=== PATIENT | male | born 1990 | race Caucasian/White ===

== ENCOUNTER 2017-12-13 21:30 | Emergency (ER) | payer BC ==
[2017-12-13 22:39] LABS: Absolute Lymphocytes (CBC) 1.1 K/uL (0.7-4.9); Absolute Monocytes 1.2 K/uL (0.1-1.3); Absolute Neutrophil 12.2 K/uL (1.8-8.0); Basophils % 0.2 % (0-1.3); Eosinophils % 0.1 % (0-4.4); Hematocrit 46.1 % (39.6-49.0); Lymphocytes % 7.6 % (15.3-44.8); MCH 30.5 pg (27.0-35.0); MCV 88.2 fL (80-100); MPV 9.1 fL (7.6-11.3); Monocytes % 8.1 % (3.3-12.3); RBC Red Blood Cell Count 5.23 M/uL (4.33-5.43)
[2017-12-13 22:44] LABS: Protime INR 1.13
[2017-12-13 23:07] LABS: ALT/SGPT 34 U/L (12-78); AST/SGOT 32 U/L (15-37); Albumin 5.5 g/dL (3.4-5.0); Alkaline Phosphatase 93 U/L (45-117); BUN Blood Urea Nitrogen 18 mg/dL (7-18); Bicarbonate 29 mmol/L (21-32); Bilirubin Direct 0.1 mg/dL (0-0.2); Bilirubin Total 0.8 mg/dL (0.2-1.0); Glucose Level 91 mg/dL (74-106); Potassium 3.8 mmol/L (3.5-5.1); Protein, Total 9.6 g/dL (6.4-8.2); Sodium Level 140 mmol/L (136-145)
[2017-12-13 23:44] LABS: Urine Blood TRACE (NEG); Urine Glucose NEGATIVE (NEG); Urine Protein 2+ (NEG); Urine Specific Gravity >1.030 (1.005-1.030); Urine pH 5.5 (5.0-7.0)
[2017-12-14 00:01] LABS: Barbiturates NEGATIVE (NEGATIVE); Benzodiazepines NEGATIVE (NEGATIVE); Cocaine NEGATIVE (NEGATIVE); METHAMPHETAM NEGATIVE (NEGATIVE); Methadone NEGATIVE (NEGATIVE); Opiates NEGATIVE (NEGATIVE); Phencyclidine NEGATIVE (NEGATIVE); THC Cannibis NEGATIVE (NEGATIVE)
--- NOTE | 2017-12-14 06:44 | EDPHYS ---
Physician Documentation [facility] Name: Jonnie Weldon Age: 27 yrs Sex: Male : 1990 Arrival Date: 12/13/2017 Time: 21:40 Bed 7 Private MD: ED Physician Karthik Tompkins HPI: 12/14 03:11 This 27 yrs old Male presents to ER via Law Enforcement with complaints of tw4 Suicidal Ideation. 03:11 The patient presents to the emergency department with depression, over a relationship, tw4 suicide ideation, and the patient has a plan, unknown. Onset: The symptoms/episode began/occurred just prior to arrival, today. Past psychiatric history: Prior diagnosis: depression, Psychiatric medications include:. Associated signs and symptoms: The patient has no apparent associated signs or symptoms. Historical: - Allergies: 12/13 22:12 No Known Allergies; aa1 - Home Meds: 23:12 Trintellix 20 mg oral tab 1 tab once daily [Active]; aa1 - PMHx: 22:12 Depression; aa1 - PSHx: 22:12 None; aa1 - Immunization history:: Adult Immunizations up to date. - Social history:: Smoking status: Patient/guardian denies using tobacco, Patient uses alcohol, occasionally. Patient/guardian denies using street drugs, IV drugs. - Ebola Screening: : No symptoms or risks identified at this time. ROS: 12/14 03:11 Constitutional: Negative for fever, chills, and weight loss, Eyes: Negative for injury, tw4 pain, redness, and discharge, Cardiovascular: Negative for chest pain, palpitations, and edema, Respiratory: Negative for shortness of breath, cough, wheezing, and pleuritic chest pain, Abdomen/GI: Negative for abdominal pain, nausea, vomiting, diarrhea, and constipation, Back: Negative for injury and pain, MS/Extremity: Negative for injury and deformity, Neuro: Negative for headache, weakness, numbness, tingling, and seizure. Psych: Positive for depression, suicide gesture, suicidal ideation. Exam: 03:11 Constitutional: This is a well developed, well nourished patient who is awake, alert, tw4 and in no acute distress. Head/Face: Normocephalic, atraumatic. Chest/axilla: Normal chest wall appearance and motion. Nontender with no deformity. No lesions are appreciated. Cardiovascular: Regular rate and rhythm with a normal S1 and S2. No gallops, murmurs, or rubs. Normal PMI, no JVD. No pulse deficits. Respiratory: Lungs have equal breath sounds bilaterally, clear to auscultation and percussion. No rales, rhonchi or wheezes noted. No increased work of breathing, no retractions or nasal flaring. Abdomen/GI: Soft, non-tender, with normal bowel sounds. No distension or tympany. No guarding or rebound. No evidence of tenderness throughout. Back: No spinal tenderness. No costovertebral tenderness. Full range of motion. MS/ Extremity: Pulses equal, no cyanosis. Neurovascular intact. Full, normal range of motion. Neuro: Awake and alert, GCS 15, oriented to person, place, time, and situation. Cranial nerves II-XII grossly intact. Motor strength 5/5 in all extremities. Sensory grossly intact. Cerebellar exam normal. Normal gait. 03:11 Psych: Behavior/mood is suicidal, depressed, Affect is flat, Oriented to person, place, time, Patient has no thoughts/intents to harm self or others. Vital Signs: 12/13 21:42 BP 145 / 91; Pulse 81; Resp 16; Temp 98.6; Pulse Ox 96% on R/A; Weight 63.5 kg; Height aa1 5 ft. 11 in. (180.34 cm); Pain 0/10; 12/14 01:26 BP 118 / 72; Pulse 76; Resp 16; Pulse Ox 98% on R/A; oe 04:54 BP 123 / 67; Pulse 65; Resp 16; Temp 98.5(O); Pulse Ox 98% on R/A; oe 06:33 BP 115 / 65; Pulse 77; Resp 16; Pulse Ox 99% on R/A; oe 12/13 21:42 Body Mass Index 19.53 (63.50 kg, 180.34 cm) aa1 MDM: 12/13 21:45 Patient medically screened. tw4 12/14 03:11 Differential diagnosis: drug withdrawal. depression. Data reviewed: vital signs, nurses tw4 notes. Data interpreted: Pulse oximetry: Interpretation: normal. Counseling: I had a detailed discussion with the patient and/or guardian regarding: the historical points, exam findings, and any diagnostic results supporting the discharge/admit diagnosis. 12/13 22:17 Order name: Acetaminophen ak1 12/13 22:17 Order name: Basic Metabolic Panel ne1 12/13 22:17 Order name: CBC with Diff ak1 12/13 22:17 Order name: ETOH Level ak1 12/13 22:17 Order name: Hepatic Function ak1 12/13 22:17 Order name: PT-INR ak1 12/13 22:17 Order name: Ptt, Activated [facility] 12/13 22:17 Order name: Salicylate [facility] 12/13 22:17 Order name: Urine Drug Screen [facility] 12/13 22:17 Order name: EKG; Complete Time: 22:18 ak1 12/13 22:17 Order name: EKG - Nurse/Tech; Complete Time: : [facility] 12/13 22:17 Order name: IV Saline Lock; Complete Time: 22:17 ak 12/13 22:17 Order name: Labs collected and sent; Complete Time: 22:23 [facility] 12/13 23:34 Order name: Urine Dipstick--Ancillary (enter results) [facility] 12/13 22:17 Order name: Urine Dipstick-Ancillary (obtain specimen); Complete Time: 00:45 ak Administered Medications: No medications were administered Disposition: 12/14/17 06:44 Transfer ordered to Psych Facility. Diagnosis are Suicidal ideations, Major depressive disorder, recurrent. - Reason for transfer: Higher level of care. - Accepting physician is Dr Cervantes. - Condition is Stable. - Problem is new. - Symptoms have improved. Signatures: Dispatcher [employer] Lala Azul RN RN aa1 Perla Nagy RN RN ak1 Karthik Tompkins MD MD tw4 Corrections: (The following items were deleted from the chart) 12/13 23:12 22:12 Home Meds: unknown antidepressant; aa1 aa1 12/14 06:44 06:44 12/14/2017 06:44 Transfer ordered to Psych Facility. Diagnosis is Suicidal aa1 ideations; Major depressive disorder, recurrent. Reason for transfer: Higher level of care. Accepting physician is Dr Cervantes. Condition is Stable. Problem is new. Symptoms have improved. tw4
--- NOTE | 2017-12-14 06:44 | ER ---
Nurse's Notes [facility] Name: Jonnie Weldon Age: 27 yrs Sex: Male : 1990 Arrival Date: 12/13/2017 Time: 21:40 Bed 7 Private MD: Diagnosis: Suicidal ideations;Major depressive disorder, recurrent Presentation: 12/13 21:42 Presenting complaint: Mental health deputy reports pt wrote a 3 page letter to an aa1 employee at the [facility] which had suicidal statements contained in it. Pt states in the letter that he plans to take his own life but does not mention a plan. Upon arrival to ED pt denies any thoughts of harming himself or others but states that he has been depressed and has dealt with depression his entire life. Transition of care: patient was not received from another setting of care. Onset of symptoms was December 13, 2017. Risk Assessment: Do you want to hurt yourself or someone else? Patient reports no desire to harm self or others. Other: Denies thoughts of harming self or other, however pt wrote a letter stating that he wanted to take his own life. Initial Sepsis Screen: Does the patient meet any 2 criteria? No. Patient's initial sepsis screen is negative. Does the patient have a suspected source of infection? No. Patient's initial sepsis screen is negative. Care prior to arrival: None. 21:42 Method Of Arrival: Law Enforcement: [facility] deputy aa 21:42 Acuity: ALVIN 2 aa1 Historical: - Allergies: 22:12 No Known Allergies; aa1 - Home Meds: 23:12 Trintellix 20 mg oral tab 1 tab once daily [Active]; aa1 - PMHx: 22:12 Depression; aa1 - PSHx: 22:12 None; aa1 - Immunization history:: Adult Immunizations up to date. - Social history:: Smoking status: Patient/guardian denies using tobacco, Patient uses alcohol, occasionally. Patient/guardian denies using street drugs, IV drugs. - Ebola Screening: : No symptoms or risks identified at this time. Screenin:45 Abuse screen: Denies threats or abuse. Denies injuries from another. Nutritional aa1 screening: No deficits noted. Tuberculosis screening: No symptoms or risk factors identified. Fall Risk None identified. Assessment: 21:45 General: Appears in no apparent distress. comfortable, slender, Behavior is calm, aa1 cooperative, appropriate for age. Pain: Denies pain. Neuro: Level of Consciousness is awake, alert, obeys commands, Oriented to person, place, time, situation, Moves all extremities. Full function Gait is steady, Speech is normal, Pupils are PERRLA. Cardiovascular: Heart tones S1 S2 present Rhythm is regular. Respiratory: Airway is patent Respiratory effort is even, unlabored, Respiratory pattern is regular, symmetrical. GI: No signs and/or symptoms were reported involving the gastrointestinal system. : No signs and/or symptoms were reported regarding the genitourinary system. EENT: No signs and/or symptoms were reported regarding the EENT system. Derm: Skin is intact, is healthy with good turgor, Skin is. Musculoskeletal: Circulation, motion, and sensation intact. Capillary refill < 3 seconds. 22:24 Reassessment: Patient appears in no apparent distress at this time. Patient and/or aa1 family updated on plan of care and expected duration. Pain level reassessed. Patient is alert, oriented x 3, equal unlabored respirations, skin warm/dry/pink. Mother and father at bedside. 23:16 Reassessment: Patient appears in no apparent distress at this time. Patient and/or aa1 family updated on plan of care and expected duration. Pain level reassessed. Patient is alert, oriented x 3, equal unlabored respirations, skin warm/dry/pink. Awaiting [facility] eval. Parents remain at bedside. Pt given chips \T\ sandwhich. 12/14 02:06 Reassessment: Patient appears in no apparent distress at this time. pt resting with ak1 eyes closed, resp even and unlabored. sitter remains at bedside. will continue to monitor. 03:06 Reassessment: Patient appears in no apparent distress at this time. Patient and/or ak1 family updated on plan of care and expected duration. Pain level reassessed. Patient is alert, oriented x 3, equal unlabored respirations, skin warm/dry/pink. ERP at bedside for re-assessment. sitter remains at bedside. will continue to monitor. 04:10 Reassessment: Patient appears in no apparent distress at this time. Patient and/or aa1 family updated on plan of care and expected duration. Pain level reassessed. Patient is alert, oriented x 3, equal unlabored respirations, skin warm/dry/pink. [place] [facility] 04:20 Reassessment: Nurse to nurse given to Kiran at [facility]. States FRENCH must be renewed aa1 to reflect today's date since it was written last night in order for them to accept pt. 05:03 Reassessment: Nurse to nurse given to Chantelle at [facility]. aa1 06:36 Reassessment: Patient appears in no apparent distress at this time. Patient is alert, aa1 oriented x 3, equal unlabored respirations, skin warm/dry/pink. EMS present for transfer to [facility]. Vital Signs: 12/13 21:42 BP 145 / 91; Pulse 81; Resp 16; Temp 98.6; Pulse Ox 96% on R/A; Weight 63.5 kg; Height aa1 5 ft. 11 in. (180.34 cm); Pain 0/10; 12/14 01:26 BP 118 / 72; Pulse 76; Resp 16; Pulse Ox 98% on R/A; oe 04:54 BP 123 / 67; Pulse 65; Resp 16; Temp 98.5(O); Pulse Ox 98% on R/A; oe 06:33 BP 115 / 65; Pulse 77; Resp 16; Pulse Ox 99% on R/A; oe 12/13 21:42 Body Mass Index 19.53 (63.50 kg, 180.34 cm) aa1 ED Course: 12/13 21:40 Patient arrived in ED. rg2 21:42 Lala Morfin RN is Primary Nurse. aa1 21:42 Arm band placed on right wrist. aa1 21:45 Karthik Tompkins MD is Attending Physician. tw4 21:45 Initial lab(s) drawn, by me, sent to lab. Inserted saline lock: 20 gauge in right aa1 forearm, using aseptic technique. by Perla Nagy RN. 21:45 Patient has correct armband on for positive identification. Placed in gown. Bed in low aa1 position. Pulse ox on. NIBP on. Warm blanket given. 22:07 EKG done, by tech writer. reviewed by Karthik Tmopkins MD. oe 22:08 Safety checks: Items removed: yes. Door open/sign placed on door: yes. Family/friend oe present: no. Sitter present: Yes. 22:11 Triage completed. aa1 22:30 Safety checks: Items removed: yes. Door open/sign placed on door: yes. Family/friend oe present: no. Sitter present: Yes. 22:45 Safety checks: Items removed: yes. Door open/sign placed on door: yes. Family/friend oe present: yes. Family/friends encouraged to stay with patient. Sitter present: Yes. 23:00 Safety checks: Items removed: yes. Door open/sign placed on door: yes. Family/friend oe present: yes. Family/friends encouraged to stay with patient. Sitter present: Yes. 23:15 Safety checks: Items removed: yes. Door open/sign placed on door: yes. Family/friend oe present: yes. Family/friends encouraged to stay with patient. Sitter present: Yes. 23:30 Safety checks: Items removed: yes. Door open/sign placed on door: yes. Family/friend oe present: no. Sitter present: Yes. 23:34 Side rails up X2. Warm blanket given. oe 23:45 Safety checks: Items removed: yes. Door open/sign placed on door: yes. Family/friend oe present: no. Sitter present: Yes. 12/14 00:00 Safety checks: Items removed: yes. Door open/sign placed on door: yes. Family/friend oe present: no. Sitter present: Yes. 00:15 Safety checks: Items removed: yes. Door open/sign placed on door: yes. Family/friend oe present: no. Sitter present: Yes. 00:30 Safety checks: Items removed: yes. Door open/sign placed on door: yes. Family/friend oe present: no. Sitter present: Yes. 00:45 Safety checks: Items removed: yes. Door open/sign placed on door: yes. Family/friend oe present: no. Sitter present: Yes. 01:00 Safety checks: Items removed: yes. Door open/sign placed on door: yes. Family/friend oe present: no. Sitter present: Yes. 01:15 Safety checks: Items removed: yes. Door open/sign placed on door: yes. Family/friend oe present: no. Sitter present: Yes. 01:30 Safety checks: Items removed: yes. Door open/sign placed on door: yes. Family/friend oe present: no. Sitter present: Yes. 01:45 Safety checks: Items removed: yes. Door open/sign placed on door: yes. Family/friend oe present: no. Sitter present: Yes. 02:00 Safety checks: Items removed: yes. Door open/sign placed on door: yes. Family/friend oe present: no. Sitter present: Yes. 02:15 Safety checks: Items removed: yes. Door open/sign placed on door: yes. Family/friend oe present: no. Sitter present: Yes. 02:30 Safety checks: Items removed: yes. Door open/sign placed on door: yes. Family/friend oe present: no. Sitter present: Yes. 02:45 Safety checks: Items removed: yes. Door open/sign placed on door: yes. Family/friend oe present: no. Sitter present: Yes. 03:00 Safety checks: Items removed: yes. Door open/sign placed on door: yes. Family/friend oe present: no. Sitter present: Yes. 03:15 Safety checks: Items removed: yes. Door open/sign placed on door: yes. Family/friend oe present: no. Sitter present: Yes. 03:30 Safety checks: Items removed: yes. Door open/sign placed on door: yes. Family/friend oe present: no. Sitter present: Yes. 03:45 Safety checks: Items removed: yes. Door open/sign placed on door: yes. Family/friend oe present: no. Sitter present: Yes. 04:00 Safety checks: Items removed: yes. Door open/sign placed on door: yes. Family/friend oe present: no. Sitter present: Yes. 04:15 Safety checks: Items removed: yes. Door open/sign placed on door: yes. Family/friend oe present: no. Sitter present: Yes. 04:30 Safety checks: Items removed: yes. Door open/sign placed on door: yes. Family/friend oe present: no. Sitter present: Yes. 04:45 Safety checks: Items removed: yes. Door open/sign placed on door: yes. Family/friend oe present: no. Sitter present: Yes. 05:00 Safety checks: Items removed: yes. Door open/sign placed on door: yes. Family/friend oe present: no. Sitter present: Yes. 05:15 Safety checks: Items removed: yes. Door open/sign placed on door: yes. Family/friend oe present: no. Sitter present: Yes. 05:30 Safety checks: Items removed: yes. Door open/sign placed on door: yes. Family/friend oe present: no. Sitter present: Yes. 05:45 Safety checks: Items removed: yes. Door open/sign placed on door: yes. Family/friend oe present: no. Sitter present: Yes. 06:00 Safety checks: Items removed: yes. Door open/sign placed on door: yes. Family/friend oe present: no. Sitter present: Yes. 06:15 Safety checks: Items removed: yes. Door open/sign placed on door: yes. Family/friend oe present: no. Sitter present: Yes. 06:30 Safety checks: Items removed: yes. Door open/sign placed on door: yes. Family/friend oe present: no. Sitter present: Yes. 06:36 No provider procedures requiring assistance completed. IV discontinued, intact, aa1 bleeding controlled, No redness/swelling at site. Pressure dressing applied. Administered Medications: No medications were administered Outcome: 06:36 Transferred by ground EMS Transfer form completed. Note: to Mercedes Loya aa1 06:36 Condition: good 06:36 Instructed on the need for transfer, Demonstrated understanding of instructions. 06:44 ER care complete, transfer ordered by . tw4 06:44 Patient left the ED. aa1 Signatures: Faye Shin2 Lala Morfin RN RN aa1 Perla Nagy RN RN ak1 Jim Albrecht Terrence, MD MD tw4 Corrections: (The following items were deleted from the chart) 12/13 23:12 22:12 Home Meds: unknown antidepressant; aa1 aa1 12/14 00:07 12/13 23:49 Safety checks: Items removed: yes. Door open/sign placed on door: yes. oe Family/friend present: no. Sitter present: Yes. oe 12/14 00:19 00:07 Safety checks: Items removed: yes. Door open/sign placed on door: yes. oe Family/friend present: no. Sitter present: Yes. oe 01:27 01:06 Safety checks: Items removed: yes. Door open/sign placed on door: yes. oe Family/friend present: no. Sitter present: Yes. oe 01:44 01:28 Safety checks: Items removed: yes. Door open/sign placed on door: yes. oe Family/friend present: no. Sitter present: Yes. oe 04:29 03:27 Safety checks: Items removed: yes. Door open/sign placed on door: yes. oe Family/friend present: no. Sitter present: Yes. oe 05:21 04:55 Safety checks: Items removed: yes. Door open/sign placed on door: yes. oe Family/friend present: no. Sitter present: Yes. oe 05:21 04:56 Safety checks: Items removed: yes. Door open/sign placed on door: yes. oe Family/friend present: no. Sitter present: Yes. oe 05:58 05:38 Safety checks: Items removed: yes. Door open/sign placed on door: yes. oe Family/friend present: no. Sitter present: Yes. oe 06:35 05:58 Safety checks: Items removed: yes. Door open/sign placed on door: yes. oe Family/friend present: no. Sitter present: Yes. oe
--- NOTE | 2017-12-14 15:38 | EKG ---
Test Date: 2017-12-13 Test Time: 21:55:46 [facility] MEASUREMENT RESULTS: Intervals: Rate: 59 CO: 150 QRSD: 94 QT: 404 QTc: 399 [place]: P: 46 CO: 150 QRS: 33 T: 44 INTERPRETIVE STATEMENTS: Sinus bradycardia with marked sinus arrhythmia Otherwise normal ECG No previous ECG available for comparison Electronically Signed On 12-14-17 15:35:09 CDT by Artur Figueredo
== END 2017-12-14 06:44 ==
LOC: ER 21:30
DX: F33.9 Major depressive disorder, recurrent, unspecified (principal)
CPT/HCPCS: 36415; 80048; 80076; 80307; 80320; 80329; 81003; 85025; 85610; 85730; 93005; 99285